=== PATIENT | female | born 1980 | race Caucasian/White ===

== ENCOUNTER 2017-02-19 15:51 | Emergency (ER) | payer OTHER ==
[2017-02-19 16:00] VITALS: BP 117/62; PULSE 107; TEMP 101.1; BMI 21.2
[2017-02-19] MEDS ORDERED: ACETAMINOPHEN 325 MG TABLET (FP) PO ONE (16:00)
--- NOTE | 2017-02-19 16:57 | PDOC ---
History of Present Illness - General Chief Complaint: Cold Symptoms Stated Complaint: COUGHING, EAR PAIN Time Seen by Provider: 02/19/17 16:43 History Source: Patient Exam Limitations: No Limitations - History of Present Illness Initial Comments: 02/19/17 17:29 Patient is a 36-year-old female who presents with 2 days of fevers, cough, conjunctivitis, headaches, sore throat and body aches. Patient states that she has been taking Motrin for her symptoms with relief. However once the Motrin wears off the patient states that all of her symptoms come back. She has not taken any medication today. Patient states she did not receive a flu shot this year. Denies nausea, vomiting, diarrhea, shortness of breath, difficulty breathing. Triage vitals notable for temp of 101F. Past History - Travel Traveled outside of the country in the last 30 days: No Close contact w/someone who was outside of country & ill: No - Past Medical History Allergies/Adverse Reactions: Allergies Allergy/AdvReac Type Severity Reaction Status Date / Time No Known Allergies Allergy Verified 02/19/17 16:00 Home Medications: Ambulatory Orders Ibuprofen 800 mg PO TID #30 tablet 02/19/17 Oseltamivir Phosphate [Tamiflu] 75 mg PO BID #10 capsule 02/19/17 Asthma: No Cancer: No CVA: No COPD: No Diabetes: No Seizures: No - Reproductive History (#): 3 Para: 3 Cervical CA: No Dysfunctional Uterine Bleeding: No Ectopic : No Endometrial CA: No Polycystic Ovaries: No Therapeutic (s) & number: No Tubal Ligation: Yes - Immunization History Immunization Up to Date: Yes - Suicide/Smoking/Psychosocial Hx Smoking Status: No Smoking History: Never smoked Have you smoked in the past 12 months: No Number of Cigarettes Smoked Daily: 0 Hx Alcohol Use: No Drug/Substance Use Hx: No Substance Use Type: None Hx Substance Use Treatment: No Review of Systems - Review of Systems Able to Perform ROS?: Yes Comments:: 02/19/17 17:31 CONSTITUTIONAL: Present: Fever, body aches Absent:chills, diaphoresis, generalized weakness, malaise, loss of appetite HEENT: Present: rhinorrhea, sore throat Absent: nasal congestion,throat swelling, difficulty swallowing, mouth swelling, ear pain, eye pain, visual Changes CARDIOVASCULAR: Absent: chest pain, loss of consciousness, palpitations, irregular heart rate, peripheral edema RESPIRATORY: Present: cough Absent: shortness of breath, dyspnea with exertion, orthopnea, wheezing, stridor, hemoptysis GASTROINTESTINAL: Absent: abdominal pain, abdominal distension, nausea, vomiting, diarrhea, constipation, melena, hematochezia GENITOURINARY: Absent: dysuria, frequency, urgency, hesitancy, hematuria, flank pain, genital pain MUSCULOSKELETAL: Absent: myalgia, arthralgia, joint swelling SKIN: Absent: rash, itching, pallor HEMATOLOGIC/IMMUNOLOGIC: Absent: easy bleeding, easy bruising, lymphadenopathy, frequent infections ENDOCRINE: Absent: unexplained weight gain, unexplained weight loss, heat intolerance, cold intolerance NEUROLOGIC: Present: headache Absent: focal weakness or paresthesias, dizziness, unsteady gait, seizure, mental status changes, bladder or bowel incontinence PSYCHIATRIC: Absent: anxiety, depression, suicidal or homicidal ideation, hallucinations. Is the patient limited Afghan proficient: No *Physical Exam - Vital Signs Last Vital Signs Temp Pulse Resp BP Pulse Ox 101.1 F H 107 H 20 117/62 98 02/19/17 15:57 02/19/17 15:57 02/19/17 15:57 02/19/17 15:57 02/19/17 15:57 - Physical Exam Comments: 02/19/17 17:33 GENERAL: Well developed, well nourished. Awake and alert. No acute distress. Breathing easily on exam bed HEENT: Normocephalic, atraumatic. PERRLA, EOMI. B/l conjunctivitis. Sclera are non- icteric. Moist mucous membranes. Oropharynx is clear. NECK: Supple. Full ROM. No JVD. Carotid pulses 2+ and symmetric, without bruits. No thyromegaly. No lymphadenopathy. CARDIOVASCULAR: Regular rate and rhythm. No murmurs, rubs, or gallops. Distal pulses are 2+ and symmetric. PULMONARY: No evidence of respiratory distress. Lungs clear to auscultation bilaterally. No wheezing, rales or rhonchi. ABDOMINAL: Soft. Non-tender. Non-distended. No rebound or guarding. No organomegaly. Normoactive bowel sounds. MUSCULOSKELETAL Normal range of motion at all joints. No bony deformities or tenderness. No CVA tenderness. EXTREMITIES: No cyanosis. No clubbing. No edema. No calf tenderness. SKIN: Warm and dry. Normal capillary refill. No rashes. No jaundice. NEUROLOGICAL: Alert, awake, appropriate. Cranial nerves 2-12 intact. No deficits to light touch and temperature in face, upper extremities and lower extremities. No motor deficits in the in face, upper extremities and lower extremities. Normoreflexic in the upper and lower extremities. Normal speech. Toes are down- going bilaterally. Gait is normal without ataxia. PSYCHIATRIC: Cooperative. Good eye contact. Appropriate mood and affect. ED Treatment Course - Medications Given in the ED: ED Medications Discontinued Medications Generic Name Dose Route Start Last Admin Trade Name Tim PRN Reason Stop Dose Admin Acetaminophen 650 mg 02/19/17 16:00 02/19/17 16:01 Tylenol - PO 02/19/17 16:01 650 mg NOW ONE Administration Medical Decision Making - Medical Decision Making 02/19/17 17:37 Patient is 36-year-old female no past medical history who presents to the emergency department with flulike symptoms. Flu swab and strep culture were obtained. Patient is positive for flu a. No strep throat at this time. We'll discharge home with Tamiflu and ibuprofen. Patient advised to drink plenty of fluids and to follow-up with her primary care doctor. Patient feels comfortable with discharge planning and all questions were answered. *DC/Admit/Observation/Transfer Diagnosis at time of Disposition: Influenza A - Discharge Dispostion Disposition: HOME Condition at time of disposition: Stable Admit: No - Prescriptions Prescriptions: Ibuprofen 800 mg PO TID #30 tablet Oseltamivir Phosphate [Tamiflu] 75 mg PO BID #10 capsule - Referrals Referrals: Gaurav Santiago [Primary Care Provider] - - Patient Instructions Printed Discharge Instructions: DI for Influenza -- Adult Additional Instructions: You have the flu. Please take the Tamiflu as prescribed for the next 5 days to help with her symptoms. You will most likely have fevers for the next week. You may take Tylenol or Motrin as needed for your fevers. Please drink plenty of fluids including water, Gatorade. Please follow-up with your primary care doctor this week. Return to the emergency department if you have difficulty breathing, shortness of breath, fevers that will not get better with Tylenol or Motrin, or any changes in your symptoms. - Post Discharge Activity Forms/Work/School Notes: Back to Work
[2017-02-19] MEDS ORDERED: IBUPROFEN 400 MG TABLET (FP) PO ONE ×2 (16:58→17:06)
== END 2017-02-19 17:53 | disposition home or self-care (01) ==
LOC: JERFT 15:51
DX: J09.X2 Influenza due to identified novel influenza A virus with other respiratory manifestations (principal)
CPT/HCPCS: 87070; 87430; 87804; 99281-25

== ENCOUNTER 2022-02-11 09:04 | Emergency (ER) | payer OTHER ==
[2022-02-11 09:09] VITALS: BP 131/82; PULSE 95; RESP 18; TEMP 98.5; BMI 23.6
[2022-02-11] MEDS ORDERED: MECLIZINE HCL 25 MG TABLET (FP) PO ONE (09:41)
[2022-02-11] MEDS ORDERED: MECLIZINE HCL 25 MG TABLET (FP) ONE (09:45)
[2022-02-11] MEDS ORDERED: SODIUM CHLORIDE 0.9% 500 ML INFUS.BAG IV ONE (10:19)
[2022-02-11 10:56] LABS: BASO % 0.7 % (0-2.0); HEMATOCRIT 41.6 % (32.4-45.2); HEMOGLOBIN 13.5 GM/dL (10.7-15.3); LYMPH % 43.7 % (8-40); MCH 26.8 pg (25.7-33.7); MCHC 32.5 g/dl (32.0-36.0); MEAN CELL VOLUME 82.5 fl (80-96); MEAN PLT VOLUME 7.9 fl (7.5-11.1); NEUT % 44.6 % (42.8-82.8); PLATELET COUNT 405 10^3/uL (134-434); RBC 5.04 M/mm3 (3.60-5.2); RDW 14.6 % (11.6-15.6); WHITE BLOOD COUNT 5.2 K/mm3 (4.0-10.0)
[2022-02-11 11:24] LABS: ALBUMIN 3.8 g/dl (3.4-5.0); BLOOD UREA NITROGEN 12.3 mg/dL (7-18)
[2022-02-11 11:27] LABS: CREATININE 0.8 mg/dL (0.55-1.3)
[2022-02-11 11:28] LABS: BILIRUBIN,TOTAL 0.7 mg/dL (0.2-1); TOT PROT 7.6 g/dl (6.4-8.2)
== END 2022-02-11 12:28 | disposition home or self-care (01) ==
LOC: JER 09:04
DX: R42 Dizziness and giddiness (principal)
CPT/HCPCS: 0241U-QW; 36415; 71046-TC-FY; 80053; 84439; 84443; 84484; 84703; 85025; 87086; 93005; 93010; 99285-25